=== PATIENT | female | born 1950 | race Caucasian/White ===

== ENCOUNTER 2017-10-28 08:25 | Inpatient (IN) | payer MEDICARE ==
[~2017-10-28] VITALS: Ht 147.3 cm; Wt 103.3 kg
[~2017-10-28 08:25] MED LIST: CeFAZolin 2 GM/DEXTROSE 50 ML IV ONE; RINGERS SOLUTION,LACTATED 1,000 ML IV ONE
[2017-10-28] MEDS ORDERED: METF500T4 PO (09:18)
[2017-10-28] MEDS ORDERED: SAXA5TAB PO (09:18)
[2017-10-28] MEDS ORDERED: OMEP20 PO (09:18)
[2017-10-28] MEDS ORDERED: INSLAN SQ (09:18)
[2017-10-28] MEDS ORDERED: SIMV-260 PO (09:18)
[2017-10-28] MEDS ORDERED: VITAD1000 PO (09:18)
[2017-10-28] MEDS ORDERED: ASPI-1182 PO (09:18)
[2017-10-28] MEDS ORDERED: BACL10TA PO (09:18)
[2017-10-28] MEDS ORDERED: CITA10TA68 PO (09:18)
[2017-10-28] MEDS ORDERED: LISI-662 PO (09:18)
[2017-10-28] MEDS ORDERED: GLIM2 PO (09:18)
[2017-10-28] MEDS ORDERED: CeFAZolin 2 GM/DEXTROSE 50 ML IV ONE (09:30)
[2017-10-28] MEDS ORDERED: TRANEXAMIC ACID 1,000 MG in DEXTROSE 5%-WATER 50 ML IV ONE ×4 (10:00)
[2017-10-28] MEDS ORDERED: RINGERS SOLUTION,LACTATED 1,000 ML IV ONE ×2 (10:00→10:33)
[2017-10-28] MEDS ORDERED: BUPIVACAINE LIPOSOME/PF 1.3%-13.3MG/ML SUSPENSION 20 ML VIAL INJ ONE (10:00)
[2017-10-28 10:12] LABS: GLUCOMETER DEV NAME(LOC) SDS 5; GLUCOSE,POINT OF CARE 170 MG/DL (70-110)
[2017-10-28] MEDS ORDERED: SODIUM CL IRRIG SOLN BAG 3,000 ML IRRIG ONE (10:33)
[2017-10-28] MEDS ORDERED: SODIUM CHLORIDE 0.9% 100 ML ONE (12:32)
[2017-10-28] MEDS ORDERED: FentaNYL CITRATE-PF 100 MCG/2 ML VIAL IVP PRN (13:30)
[2017-10-28] MEDS ORDERED: MEPERIDINE-PF 25 MG/ML SYRINGE IVP PRN (13:30)
[2017-10-28] MEDS ORDERED: OxyCODONE HCL/ACETAMINOPHEN 5-325 MG TABLET PO PRN (13:30)
[2017-10-28] MEDS ORDERED: HYDROmorphone 2 MG/ML SYRINGE IVP PRN ×2 (13:30)
[2017-10-28] MEDS ORDERED: ZOLPIDEM TARTRATE 5 MG TABLET PO PRN (13:30)
[2017-10-28] MEDS ORDERED: SODIUM CHLORIDE 0.9% 1,000 ML IV SCH (14:59)
[2017-10-28] MEDS ORDERED: ACETAMINOPHEN 1000 MG/ISO-OSM 100 ML IV SCH (15:00)
[2017-10-28] MEDS ORDERED: ONDANSETRON HCL 4 MG/2 ML VIAL IVP PRN (15:00)
[2017-10-28] MEDS ORDERED: MAG HYDROX/AL HYDROX/SIMETH 30 ML SUSP UDCUP PO PRN (15:00)
[2017-10-28] MEDS ORDERED: BENZOCAINE/MENTHOL LOZENGE [8 LOZENGES/PACKET] PO PRN (15:00)
[2017-10-28] MEDS ORDERED: ZOLPIDEM TARTRATE 10 MG TABLET PO PRN (15:00)
[2017-10-28] MEDS ORDERED: BISACODYL 10 MG RECTAL RECTAL SUPPOSITORY PR PRN (15:00)
[2017-10-28] MEDS ORDERED: DiphenhydrAMINE HCL 50 MG/ML VIAL IVP PRN (15:00)
[2017-10-28] MEDS: CYCLOBENZAPRINE HCL 10 MG TABLET PO SCH (16:00)
[2017-10-28 16:12] VITALS: BP 158/74
[2017-10-28] MEDS: FERROUS SULFATE 325 MG EC TABLET PO SCH (17:30)
[2017-10-28] MEDS: ACETAMINOPHEN 1000 MG/ISO-OSM 100 ML IV SCH (18:58)
[2017-10-28] MEDS: OXYGEN THERAPY IH SCH (20:00)
[2017-10-28] MEDS ORDERED: RIVAROXABAN 10 MG TABLET PO SCH (20:00)
[2017-10-28] MEDS ORDERED: SODIUM CHLORIDE 0.9% 500 ML IV ONE (20:00)
[2017-10-28] MEDS: KETOROLAC TROMETHAMINE 30 MG/ML VIAL IVP SCH (20:10)
[2017-10-28] MEDS: CeFAZolin 1 GM/DEXTROSE 50 ML IV SCH (20:10)
[2017-10-28] MEDS: DOCUSATE SODIUM 100 MG CAPSULE PO SCH (20:11)
[2017-10-28] MEDS: FAMOTIDINE 20 MG TABLET PO SCH (20:15)
[2017-10-28 20:16] VITALS: BP 134/71
[2017-10-28] MEDS ORDERED: INSULIN GLARGINE,HUM.REC.ANLOG 100 UNITS/ML SQ SCH (21:00)
[2017-10-28] MEDS ORDERED: MetFORMIN HCL 500 MG TABLET PO SCH (21:00)
[2017-10-28 23:32] VITALS: BP 141/76
[2017-10-28 23:53] LABS: GLUCOMETER DEV NAME(LOC) PV 4E; GLUCOSE,POINT OF CARE 210 MG/DL (70-110)
[2017-10-28 23:53] LABS: GLUCOMETER DEV NAME(LOC) PV 4E; GLUCOSE,POINT OF CARE 293 MG/DL (70-110)
[2017-10-29] MEDS: CYCLOBENZAPRINE HCL 10 MG TABLET PO SCH ×3 (00:42→15:01)
[2017-10-29] MEDS: KETOROLAC TROMETHAMINE 30 MG/ML VIAL IVP SCH ×3 (00:43→11:27)
[2017-10-29] MEDS ORDERED: GLYCOPYRROLATE 0.2 MG/ML VIAL IM ONE (00:52)
[2017-10-29] MEDS ORDERED: LIDOCAINE HCL/PF 2% 5 ML VIAL IM ONE (00:52)
[2017-10-29] MEDS ORDERED: KETOROLAC TROMETHAMINE 60 MG/2 ML VIAL IM ONE (00:52)
[2017-10-29] MEDS ORDERED: FentaNYL CITRATE-PF 100 MCG/2 ML VIAL IVP ONE (00:52)
[2017-10-29] MEDS ORDERED: METOCLOPRAMIDE HCL 5 MG/ML 2 ML VIAL IVP ONE (00:52)
[2017-10-29] MEDS ORDERED: PROPOFOL 1% 20 ML VIAL IVP ONE (00:52)
[2017-10-29] MEDS ORDERED: ROCURONIUM BROMIDE 10 MG/ML 5 ML VIAL IVP ONE (00:52)
[2017-10-29] MEDS ORDERED: ONDANSETRON HCL 4 MG/2 ML VIAL IVP ONE (00:52)
[2017-10-29] MEDS ORDERED: MIDAZOLAM HCL 2 MG/2 ML VIAL IVP ONE (00:52)
[2017-10-29] MEDS ORDERED: SUCCINYLCHOLINE CHLORIDE 20 MG/ML 10 ML VIAL IVP ONE (00:52)
[2017-10-29] MEDS: ACETAMINOPHEN 1000 MG/ISO-OSM 100 ML IV SCH ×2 (03:07→11:27)
[2017-10-29] MEDS: CeFAZolin 1 GM/DEXTROSE 50 ML IV SCH (04:09)
[2017-10-29 06:03] LABS: GLUCOMETER DEV NAME(LOC) PV 4E; GLUCOSE,POINT OF CARE 130 MG/DL (70-110)
[2017-10-29 06:19] LABS: ANION GAP 6 mmol/L (8-16); CALCIUM, TOTAL 8.3 mg/dL (8.8-10.5); CARBON DIOXIDE 28 mmol/L (22-29); CHLORIDE 104 mmol/L (98-107); CREATININE 0.88 mg/dL (0.60-1.30); GLOMERULAR FILTR. RATE CALC > 60 mL/min (>60); GLUCOSE,RANDOM 146 mg/dL (70-110); POTASSIUM 4.2 mmol/L (3.5-5.1); SODIUM SERUM 138 mmol/L (136-145); UREA NITROGEN, BLOOD 22 mg/dL (7-18)
[2017-10-29 06:24] LABS: BASOPHILS % (AUTO) 0.4 % (0.0-2.0); EOSINOPHILS % (AUTO) 1.5 % (1.0-6.0); HEMATOCRIT 32.1 % (36-46); HEMOGLOBIN 10.8 g/dL (12.0-16.0); LYMPHOCYTES # (AUTO) 2.2 K/uL (1.0-4.8); LYMPHOCYTES % (AUTO) 25.4 % (22.0-44.0); MEAN CORPUSCULAR HEMOGLOBIN 29.1 pg (26.0-34.0); MEAN CORPUSCULAR HGB CONC 33.8 G/dL (31.0-37.0); MEAN CORPUSCULAR VOLUME 86 fL (80-100); MONOCYTES # (AUTO) 0.7 K/uL (0.1-1.0); MONOCYTES % (AUTO) 7.8 % (2.0-9.0); NEUTROPHILS # (AUTO) 5.5 K/uL (1.8-7.7); NEUTROPHILS % (AUTO) 64.9 % (40.0-70.0); PLATELET COUNT (AUTO) 178 K/uL (150-450); RED BLOOD CELL COUNT(AUTO) 3.72 MIL/uL (4.00-5.20); RED CELL DISTRIBUTION WIDTH 14.2 % (11.5-14.5)
[2017-10-29 07:00] VITALS: BP 136/71
[2017-10-29] MEDS ORDERED: GLIMEPIRIDE 2 MG TABLET PO SCH (08:00)
[2017-10-29] MEDS: OXYGEN THERAPY IH SCH (08:00)
[2017-10-29 08:51] VITALS: BP 130/68
[2017-10-29] MEDS ORDERED: SIMVASTATIN 20 MG TABLET PO SCH (09:00)
[2017-10-29] MEDS ORDERED: LISINOPRIL 20 MG TABLET PO SCH (09:00)
[2017-10-29] MEDS ORDERED: SAXAGLIPTIN HYDROCHLORIDE PO SCH (09:00)
[2017-10-29] MEDS: FAMOTIDINE 20 MG TABLET PO SCH (09:25)
[2017-10-29] MEDS: FERROUS SULFATE 325 MG EC TABLET PO SCH (09:25)
[2017-10-29] MEDS: DOCUSATE SODIUM 100 MG CAPSULE PO SCH (09:25)
[2017-10-29 11:20] VITALS: BP 129/65
[2017-10-29] MEDS ORDERED: DEXTROSE 50%-WATER 25 GM/50 ML SYRINGE IVP PRN (12:45)
[2017-10-29] MEDS ORDERED: INSULIN ASPART 100 UNITS/ML SQ PRN (12:45)
[2017-10-29 13:18] LABS: GLUCOMETER DEV NAME(LOC) PV 4E; GLUCOSE,POINT OF CARE 240 MG/DL (70-110)
[2017-10-29] MEDS ORDERED: ASPI-891 PO (15:37)
[2017-10-29] MEDS ORDERED: HYDR-309 PO (15:41)
[2017-10-29] MEDS ORDERED: GABA-531 PO ×2 (15:41→15:43)
[2017-10-29] MEDS ORDERED: DSSL PO (15:42)
== END 2017-10-29 16:25 | disposition home or self-care (01) | DRG 470 ==
LOC: 4E 08:25
PROVIDERS: ADMIT Orthopaedic Surgery; ATTEND Orthopaedic Surgery
PROC: 3E0T3BZ Introduction of Anesthetic Agent into Peripheral Nerves and Plexi, Percutaneous Approach (ICD-10-PCS; 2017-10-28)
PROC: 0SRD0J9 Replacement of Left Knee Joint with Synthetic Substitute, Cemented, Open Approach (ICD-10-PCS; principal; 2017-10-28 11:15)
DX: M17.12 Unilateral primary osteoarthritis, left knee (principal); Z68.42 Body mass index [BMI] 45.0-49.9, adult; E66.9 Obesity, unspecified; I10 Essential (primary) hypertension; K21.9 Gastro-esophageal reflux disease without esophagitis; F32.9 Major depressive disorder, single episode, unspecified; E11.9 Type 2 diabetes mellitus without complications
CPT/HCPCS: 82962; 87081; 88300; 97116; 97161; 97165; 97530; 97535; C9290; G0238; J0131; J0330; J0690; J1815; J1885; J2250; J2405; J2704; J2765; J3010; J3490; J7030; J7040; J7050; J7060; J7120